=== PATIENT | male | born 1940 | race Caucasian/White ===

== ENCOUNTER 2021-09-10 12:13 | Emergency (ER) | payer MEDICARE ==
[2021-09-10] VITALS (30 sets, daily range): BP systolic 81–136; BP diastolic 40–81
[~2021-09-10] VITALS: Ht 162.6 cm; Wt 68.0 kg
[2021-09-10] MEDS ORDERED: DITROPAN XL5 MG PO (12:56)
[2021-09-10 12:59] LABS: HEMATOCRIT 38.9 % (39.0-50.0); HEMOGLOBIN 12.4 g/dl (14.0-18.0); IMMATURE GRANULOCYTES 0.3 % (0.0-5.0); MEAN CELL VOLUME 91.5 fL CALC (80.0-100.0); MEAN CORPUSCULAR HGB 29.2 pG CALC (26.0-32.0); MEAN CORPUSCULAR HGB CONC 31.9 g/dL CAL (32.0-36.0); NEUT# 8.12 thou/uL (1.82-7.42); RED BLOOD COUNT 4.25 mill/uL (4.70-6.10); RED CELL DISTRI WIDTH 13.6 % (11.5-15.5)
[2021-09-10] MEDS ORDERED: ASPIRIN ENTERIC81 MG PO (13:12)
[2021-09-10] MEDS ORDERED: CRESTOR10 MG PO (13:13)
[2021-09-10] MEDS ORDERED: CLOPIDOGREL75 MG PO (13:13)
[2021-09-10] MEDS ORDERED: FINASTERIDE5 MG PO (13:14)
[2021-09-10] MEDS ORDERED: LISINOPRIL10 MG PO (13:14)
[2021-09-10] MEDS ORDERED: TAMSULOSIN HCL0.4 MG PO (13:15)
[2021-09-10 13:16] LABS: INTERNATIONAL NORMALIZED RATIO 1.1 RATIO (0.7-1.3); PROTHROMBIN TIME 11.2 SECONDS (9.0-12.5)
[2021-09-10] MEDS ORDERED: FOLIC ACID1 MG PO (13:16)
[2021-09-10] MEDS ORDERED: CARVEDILOL6.25 MG PO (13:17)
[2021-09-10 13:18] LABS: ALBUMIN 3.7 g/dL (3.2-5.0); BILIRUBIN, TOTAL 1.4 mg/dL (0.0-1.4); CREATININE 1.8 mg/dL (0.7-1.3)
[2021-09-10 13:22] LABS: POTASSIUM 5.5 mmol/l (3.5-5.1)
[2021-09-10] MEDS ORDERED: DEPAKOTE125 MG PO (13:30)
[2021-09-10 13:32] LABS: URINE BLOOD DIPSTICK LARGE (NEGATIVE); URINE GLUCOSE - DIPSTICK NEGATIVE (NEGATIVE); URINE KETONE 15 mg/dL (NEGATIVE); URINE PROTEIN - DIPSTICK 100 mg/dL (NEG-TRACE); URINE SPECIFIC GRAVITY >=1.030
[2021-09-10 13:33] LABS: URINE BILIRUBIN - DIPSTICK MODERATE (NEGATIVE); URINE LEUK ESTERASE MODERATE (NEGATIVE); URINE NITRITE - DIPSTICK POSITIVE (Negative)
[2021-09-10 13:34] LABS: URINE BACTERIA MANY hpf; URINE COLOR DK. YELLOW; URINE EPITHELIAL CELLS FEW EPI/hpf (0-FEW); URINE MUCUS MANY hpf (NONE-FEW); URINE RBC 25-50 RBC/hpf (0-5)
== END 2021-09-10 20:09 ==
LOC: ED 12:13
PROVIDERS: Emergency Medicine; Nurse Practitioner
DX: K92.0 Hematemesis (principal); N39.0 Urinary tract infection, site not specified; I95.9 Hypotension, unspecified; I10 Essential (primary) hypertension; B96.89 Other specified bacterial agents as the cause of diseases classified elsewhere; Z95.5 Presence of coronary angioplasty implant and graft; Z95.0 Presence of cardiac pacemaker; Z79.02 Long term (current) use of antithrombotics/antiplatelets; Z79.82 Long term (current) use of aspirin
CPT/HCPCS: S0164